=== PATIENT | male | born 1970 | race Caucasian/White ===

== ENCOUNTER 2017-08-14 15:32 | Emergency (ER) | payer BC, OTHER ==
[2017-08-14 15:42] VITALS: BP 146/93; PULSE 96; TEMP 98.2; BMI 29.9
--- NOTE | 2017-08-14 15:59 | PDOC ---
History of Present Illness - General Chief Complaint: Injury Stated Complaint: INJURY Time Seen by Provider: 08/14/17 15:48 History Source: Patient Exam Limitations: No Limitations - History of Present Illness Initial Comments: CHIEF COMPLAINT: 47 y/o male with injury to right 4th digit. HISTORY OF PRESENT ILLNESS: The patient states a heavy pipe fell on his finger at work today. He now has pain in the tip of that finger. He denies decreased ROM, numbness/tingling. Vital signs on arrival are within normal limits. REVIEW OF SYSTEMS: GENERAL/CONSTITUTIONAL: No fever/chills. No weakness. No weight change. MUSCULOSKELETAL: +right finger injury. No neck or back pain. SKIN: No rash or easy bruising. NEUROLOGIC: No headache, vertigo, loss of consciousness, or loss of sensation. PHYSICAL EXAM: VITAL_SIGNS: within normal limits GENERAL_APPEARANCE: alert, cooperative, no obvious discomfort. MENTAL_STATUS: speech clear, oriented X 3, responds appropriately to questions. NEURO: motor intact and sensory intact in injured extremity. EXTREMITIES: good pulse in injured extremity. Full flexion and extension of right 4th finger. Minimal ecchymosis to finger pad of 4th right digit with TTP. No obvious deformities. No dislocation. SKIN: warm, dry, good color. Past History - Past Medical History Allergies/Adverse Reactions: Allergies Allergy/AdvReac Type Severity Reaction Status Date / Time No Known Allergies Allergy Verified 08/14/17 15:38 COPD: No DVT: No - Immunization History Immunization Up to Date: Yes - Suicide/Smoking/Psychosocial Hx Smoking History: Never smoked Information on smoking cessation initiated: No Hx Alcohol Use: No Drug/Substance Use Hx: No Substance Use Type: None *Physical Exam - Vital Signs Last Vital Signs Temp Pulse Resp BP Pulse Ox 98.2 F 96 H 18 146/93 98 08/14/17 15:38 08/14/17 15:38 08/14/17 15:38 08/14/17 15:38 08/14/17 15:38 Medical Decision Making - Medical Decision Making A/P: 47 y/o male with injury to right 4th digit. Do not suspect fracture based on exam but will do therapuetic xray. Xray right finger IMPRESSION: (Wet read) No acute pathology. No fracture. Gave patient the results. Suggested he ice the area and take motrin for pain if needed. INstructed him to return to the ER with any worsening or concerning symptoms. The patient verbalizes understanding of all instructions, has no further questions and is awaiting discharge. *DC/Admit/Observation/Transfer Diagnosis at time of Disposition: Finger injury Qualifiers: Encounter type: initial encounter Laterality: right Qualified Code(s): S69.91XA - Unspecified injury of right wrist, hand and finger(s), initial encounter - Discharge Dispostion Disposition: HOME Condition at time of disposition: Good - Referrals - Patient Instructions Printed Discharge Instructions: DI for Finger Sprain Additional Instructions: Discharge Instructions: -The xray of your finger was normal -Ice the affected area -Take Motrin for pain if needed -REturn to the ER with any worsening or concerning symptoms - Post Discharge Activity Forms/Work/School Notes: Back to Work
== END 2017-08-14 16:24 | disposition home or self-care (01) ==
LOC: JERFT 15:32
DX: S69.81XA Other specified injuries of right wrist, hand and finger(s), initial encounter (principal); W22.8XXA Striking against or struck by other objects, initial encounter; Y93.89 Activity, other specified; Y92.63 Factory as the place of occurrence of the external cause; Y99.0 Civilian activity done for income or pay
CPT/HCPCS: 73140-TC-RT-FY; 99281-25